=== PATIENT | female | born 1995 | race Caucasian/White ===

== ENCOUNTER 2016-09-16 19:41 | Emergency (ER) | payer OTHER ==
[2016-09-16] MEDS ORDERED: CYCLOBENZAPRINE 10 MG TAB ONE (20:22)
[2016-09-16] MEDS ORDERED: KETOROLAC 60 MG/2 ML VIAL IM ONE (20:22)
== END 2016-09-16 22:11 | disposition home or self-care (01) ==
LOC: ER 19:41
DX: S39.012A Strain of muscle, fascia and tendon of lower back, initial encounter (principal); V49.59XA Passenger injured in collision with other motor vehicles in traffic accident, initial encounter; Y92.488 Other paved roadways as the place of occurrence of the external cause
CPT/HCPCS: 72100; 96372